=== PATIENT | male | born 1965 | race Hispanic/Latino ===

== ENCOUNTER 2022-08-07 08:33 | Emergency (ER) | payer OTHER ==
[~2022-08-07] VITALS: Ht 160 cm; Wt 81.6 kg
[~2022-08-07 08:33] MED LIST: FAMVIR500 MG OR; LORTAB 5 OR
[2022-08-07 09:35] VITALS: BP 168/84
[2022-08-07] MEDS ORDERED: PREDNISONE50 MG PO (10:37)
[2022-08-07] MEDS ORDERED: COLCHICINE0.6 M2 PO (10:37)
[2022-08-07] MEDS ORDERED: MOTRIN400 MG/TAB PO (10:38)
[2022-08-07 11:11] VITALS: BP 168/84
== END 2022-08-07 11:20 | disposition home or self-care (01) | DRG 554 ==
LOC: ED 08:33
DX: M10.071 Idiopathic gout, right ankle and foot (principal)